=== PATIENT | male | born 1990 | race African-American/Black ===

== ENCOUNTER 2020-11-24 23:31 | Emergency (ER) | payer SELFPAY ==
[2020-11-25 00:27] VITALS: TEMP 100.8; BMI 31.5
[2020-11-25] MEDS ORDERED: ACETAMINOPHEN 500 MG TABLET (FP) PO ONE (01:34)
[2020-11-25] MEDS ORDERED: SODIUM CHLORIDE 1,000 ML IV STA (01:34)
[2020-11-25] MEDS ORDERED: METOCLOPRAMIDE HCL INJECTION 10 MG/2 ML VIAL IVPUSH ONE (01:55)
[2020-11-25] MEDS ORDERED: ACETAMINOPHEN 325 MG TABLET (FP) ONE (01:56)
[2020-11-25] MEDS ORDERED: METOCLOPRAMIDE HCL INJECTION 10 MG/2 ML VIAL ONE (01:56)
[2020-11-25 04:44] VITALS: BP 109/57; PULSE 70
== END 2020-11-25 04:44 | disposition home or self-care (01) ==
LOC: JER 23:31
PROC: 3E033NZ Introduction of Analgesics, Hypnotics, Sedatives into Peripheral Vein, Percutaneous Approach (ICD-10-PCS; principal; 2020-11-25)
PROC: 3E0337Z Introduction of Electrolytic and Water Balance Substance into Peripheral Vein, Percutaneous Approach (ICD-10-PCS; 2020-11-25)
DX: R51.9 Headache, unspecified (principal); R05 Cough; B34.9 Viral infection, unspecified
CPT/HCPCS: 99284-25; C9803; U0003; U0005